=== PATIENT | female | born 1935 | race Caucasian/White ===

== ENCOUNTER → 2017-01-08 | Outpatient (CLI) | payer MEDICARE, OTHER | END | disposition home or self-care (01) | LOC: GMAM 14:35 | PROVIDERS: ATTEND Family Medicine | DX: I10 Essential (primary) hypertension (principal); C85.88 Other specified types of non-Hodgkin lymphoma, lymph nodes of multiple sites ==

== ENCOUNTER → 2017-01-15 | Outpatient (CLI) | payer MEDICARE, OTHER | END | disposition home or self-care (01) | LOC: GMAM 14:25 | PROVIDERS: ATTEND Family Medicine | DX: C85.88 Other specified types of non-Hodgkin lymphoma, lymph nodes of multiple sites (principal); I10 Essential (primary) hypertension ==

== ENCOUNTER → 2017-01-22 | Outpatient (CLI) | payer MEDICARE, OTHER | LOC: GMAM 14:12 | PROVIDERS: ATTEND Family Medicine | DX: D64.9 Anemia, unspecified (principal) ==

== ENCOUNTER → 2017-01-28 | Outpatient (CLI) | payer MEDICARE, OTHER ==
--- NOTE | 2017-01-28 10:18 | CT ---
Study: CT of the Head. Indication: NEAR SYNCOPE Technique: Axial CT images of the head were acquired with and without without intravenous contrast. Comparison: None. Findings: No CT evidence of acute ischemia, acute hemorrhage, mass, mass effect, midline shift, or extra-axial fluid collection. No pathologic enhancement. Ventricles are normal in configuration without hydrocephalus. Patchy hypoattenuation of the periventricular and subcortical white matter noted. This is nonspecific but most consistent with chronic microvascular ischemic change. Global parenchymal volume loss and intracranial atherosclerosis noted as well. Paranasal sinuses are adequately aerated. Mastoid air cells are adequately aerated. Osseous structures and soft tissues are unremarkable. Impression: 1. No CT evidence of acute intracranial abnormality. 2. Senescent changes. Electronically signed by: Ronaldo Contreras MD 01/28/2017 10:17 AM CDT
== END | disposition home or self-care (01) ==
LOC: CT 08:42
PROVIDERS: ATTEND Family Medicine
DX: R55 Syncope and collapse (principal)

== ENCOUNTER → 2017-02-13 | Outpatient (CLI) | payer MEDICARE, OTHER | LOC: GMAM 10:32 | PROVIDERS: ATTEND Family Medicine | DX: E03.9 Hypothyroidism, unspecified (principal) ==

== ENCOUNTER → 2017-04-16 | Outpatient (CLI) | payer MEDICARE, OTHER | END | disposition home or self-care (01) | LOC: GMAM 15:03 | PROVIDERS: ATTEND Family Medicine | DX: E03.9 Hypothyroidism, unspecified (principal) ==

== ENCOUNTER → 2017-04-24 | Outpatient (CLI) | payer MEDICARE, OTHER | LOC: GMAM 16:48 | PROVIDERS: ATTEND Family Medicine | DX: R79.9 Abnormal finding of blood chemistry, unspecified (principal); R59.9 Enlarged lymph nodes, unspecified ==

== ENCOUNTER → 2017-04-25 | Outpatient (CLI) | payer MEDICARE, OTHER | END | disposition home or self-care (01) | LOC: GMAM 09:51 | PROVIDERS: ATTEND Family Medicine | DX: R79.9 Abnormal finding of blood chemistry, unspecified (principal) ==

== ENCOUNTER → 2017-06-18 | Outpatient (CLI) | payer MEDICARE, OTHER | END | disposition home or self-care (01) | LOC: GMAM 14:24 | PROVIDERS: ATTEND Family Medicine | DX: E03.9 Hypothyroidism, unspecified (principal) ==

== ENCOUNTER → 2017-07-09 | Outpatient (CLI) | payer MEDICARE, OTHER | END | disposition home or self-care (01) | LOC: GMAM 14:23 | PROVIDERS: ATTEND Family Medicine | DX: E03.9 Hypothyroidism, unspecified (principal) ==

== ENCOUNTER → 2017-07-12 | Outpatient (CLI) | payer MEDICARE, OTHER ==
--- NOTE | 2017-07-12 13:37 | US ---
Study: Left lower extremity venous Doppler sonogram. Indication: LEG PAIN Technical: Multiplanar grayscale and Doppler sonographic images of the deep veins of the left lower extremity obtained. Findings: There is no sonographic evidence of deep venous thrombosis. The deep veins of the left lower extremity compress normally and have appropriate duplex waveforms. Normal flow augmentation is noted as well. Conclusion: 1. No sonographic evidence of deep venous thrombosis of the left lower extremity. Electronically signed by: Ronaldo Contreras MD 07/12/2017 1:35 PM CDT
== END ==
LOC: US 08:00
PROVIDERS: ATTEND Family Medicine
DX: M79.605 Pain in left leg (principal); M79.662 Pain in left lower leg; M79.672 Pain in left foot; E03.9 Hypothyroidism, unspecified

== ENCOUNTER → 2017-07-22 | Outpatient (CLI) | payer MEDICARE, OTHER | END | disposition home or self-care (01) | LOC: GMAM 14:10 | PROVIDERS: ATTEND Family Medicine | DX: C85.88 Other specified types of non-Hodgkin lymphoma, lymph nodes of multiple sites (principal); I10 Essential (primary) hypertension ==

== ENCOUNTER → 2017-09-03 | Outpatient (CLI) | payer MEDICARE, OTHER | LOC: GMAM 14:39 | PROVIDERS: ATTEND Family Medicine | DX: E03.9 Hypothyroidism, unspecified (principal) ==

== ENCOUNTER → 2017-10-14 | Outpatient (CLI) | payer MEDICARE, OTHER ==
--- NOTE | 2017-10-16 10:25 | MAM ---
EXAM DESCRIPTION: 3D Screening BILATERAL : Digital Mammography. CLINICAL HISTORY: 82 years Female SCREENING . Discomfort from the right axilla to the breast, tender when rubbed. No family history of breast cancer. Mother with ovarian cancer. Postmenopausal. Has taken HRT 5 or more years ago. COMPARISON: 2-D digital screening studies 09/19/2016 and 08/24/2015. Report from prior examination also reviewed. TECHNIQUE: Bilateral CC and MLO projection full-field images, 3-D tomosynthesis digital mammographic technique. Also bilateral synthesized CC/ MLO full-field images. CAD not utilized. FINDINGS: The breast parenchymal density pattern is: Scattered areas of fibroglandular density. No skin thickening or nipple retraction bilateral solitary microcalcifications. Bilateral vascular calcifications. Injection port for VAD abutting the pectoral muscle. Left axillary lymph nodes. No focal, stellate mass or density, focal asymmetry , and no suspicious microcalcifications bilaterally. Stable mammograms compared to prior study, taking into account differences in mammographic technique IMPRESSION: BI-RADS CATEGORY: 2 - BENIGN FINDINGS. FOLLOW UP: Routine digital bilateral screening, one year interval from October 2017. Written communication explaining the IMPRESSION and follow-up, will be mailed to the patient and referring health care provider. According to the [employer], yearly mammograms are recommended starting at age 40 and continuing as long as a woman is in good health. Any breast change noted on a breast self-exam should be reported promptly to the patient's healthcare provider. Breast MRI is recommended for women with an approximately 20-25% or greater lifetime risk of breast cancer, including women with a strong family history of breast or ovarian cancer and women who have been treated for Hodgkin's disease. A negative mammographic report should not delay tissue diagnosis in patients with significant clinical history or physical findings. Extremely dense breast tissue limits the sensitivity of digital mammography. Electronically signed by: Iain Abbasi MD 10/16/2017 10:24 AM VEGETABLE LOADER MACHINE OPERATOR
== END ==
LOC: MAMMO 14:44
PROVIDERS: ATTEND Family Medicine
DX: Z12.31 Encounter for screening mammogram for malignant neoplasm of breast (principal)
CPT/HCPCS: 77063; G0202

== ENCOUNTER 2017-10-24 11:38 | Emergency (ER) | payer MEDICARE, OTHER ==
[2017-10-24 11:56] VITALS: TEMP 99.1
[2017-10-24] MEDS ORDERED: OSELTAMIVIR 75 MG CAP PO ONE (12:41)
[2017-10-24] MEDS ORDERED: IBUPROFEN 200 MG TAB ONE (13:06)
[2017-10-24] MEDS ORDERED: IBUPROFEN 200 MG TAB PO ONE (13:06)
--- NOTE | 2017-10-24 13:17 | ED.PDOC ---
History of Present Illness - General Chief Complaint: Fever Stated Complaint: FEVER, SORE THROAT, ACHING Time Seen by Provider: 10/24/17 11:48 Additional Information: Fever and aches concerning for Influenza. Pt without signs of respiratory distress. She also reports decreased appetite lately. - History of Present Illness Timing/Duration: other - past few days Severity: moderate Improving Factors: nothing Worsening Factors: nothing Associated Symptoms: fever/chills, loss of appetite, weakness Allergies/Adverse Reactions: Allergies Codeine Adverse Reaction (Intermediate, Verified 05/01/16 14:39) Pt. states codeine makes her hallucinate Home Medications: Ambulatory Orders Aluminum Hydroxide-Mag Carb [Gaviscon 95-358 mg/15Ml] 05/01/16 Amiodarone HCl 200 mg PO DAILY 05/01/16 Cetirizine HCl [ZyrTEC] 10 mg PO PRN 05/01/16 Colesevelam HCl [Welchol] 625 mg PO DAILY PRN 05/01/16 Fluticasone Propionate (Nasal) [Flonase Allergy Relief] 50 mcg NA PRN PRN Metoprolol Succinate [Toprol XL] 100 mg PO BIW 05/01/16 Omeprazole [Prilosec] 40 mg PO DAILY 05/01/16 Potassium Chloride [K-Tab] 40 meq PO DAILY 05/01/16 Pravastatin Sodium [Pravachol] 20 mg PO DAILY 05/01/16 Warfarin Sodium 2.5 mg PO DAILY 05/01/16 Oseltamivir Capsule [Tamiflu] 75 mg PO BID 5 Days #10 cap 10/24/17 Review of Systems - Review of Systems Constitutional: States: fever, malaise EENTM: States: no symptoms reported Respiratory: States: cough Cardiology: States: no symptoms reported Gastrointestinal/Abdominal: States: no symptoms reported Genitourinary: States: no symptoms reported Musculoskeletal: States: no symptoms reported Skin: States: no symptoms reported Neurological: States: no symptoms reported Endocrine: States: no symptoms reported Hematologic/Lymphatic: States: no symptoms reported Past Medical History (General) - Patient Medical History Hx Seizures: No Hx Stroke: No Hx Dementia: No Hx Asthma: No Hx of COPD: No Hx Cardiac Disorders: Yes - Cardiac stents, Pacemaker Hx Congestive Heart Failure: No Hx Pacemaker: Yes Hx Hypertension: Yes Hx Thyroid Disease: No Hx Diabetes: Yes Hx Gastroesophageal Reflux: Yes Hx Renal Disease: No Hx Cancer: Yes Hx of HIV: No Hx Hepatitis C: No Hx MRSA: No - Vaccination History Hx Tetanus, Diphtheria Vaccination: No Hx Influenza Vaccination: Yes - Aug 2017 Hx Pneumococcal Vaccination: Yes - 2016 - Social History Hx Tobacco Use: No Hx Chewing Tobacco Use: No Hx Alcohol Use: No Hx Substance Use: No Hx Substance Use Treatment: No Hx Depression: No Hx Physical Abuse: No Hx Emotional Abuse: No Hx Suspected Abuse: No - Female History Patient : No Family Medical History - Family History Mother Family History: Unknown Living Status: Physical Exam - Physical Exam General Appearance: Alert, Comfortable, No apparent distress Eye Exam: bilateral normal Ears, Nose, Throat: hearing grossly normal, normal ENT inspection, normal pharynx Neck: non-tender, full range of motion, supple Respiratory: lungs clear, normal breath sounds, no respiratory distress, no accessory muscle use Cardiovascular/Chest: regular rate, rhythm Gastrointestinal/Abdominal: soft Back Exam: normal inspection Extremity: normal range of motion, non-tender, normal inspection Neurologic: shift engineer II-XII nml as tested, no motor/sensory deficits, alert, normal mood/affect, oriented x 3 Skin Exam: normal color Lymphatic: no adenopathy Progress - Progress Progress: 10/24/17 13:26 Pt nontoxic appearing. Flu positive. Will treat with Tamiflu and Tylenol for now. Encourage fluids and strict return precautions. - Results/Orders Results/Orders: Flu PCR - positive Departure - Departure Clinical Impression: Influenza Time of Disposition: 13:30 Disposition: Discharge to Home or Self Care Condition: Fair Departure Forms: ED Discharge - Pt. Copy, Patient Portal Self Enrollment Instructions: Influenza Referrals: Kike Resendiz MD [Primary Care Provider] - 1-5 Days Prescriptions: Oseltamivir Capsule [Tamiflu] 75 mg PO BID 5 Days #10 cap Home Medications: Ambulatory Orders Aluminum Hydroxide-Mag Carb [Gaviscon 95-358 mg/15Ml] 05/01/16 Amiodarone HCl 200 mg PO DAILY 05/01/16 Cetirizine HCl [ZyrTEC] 10 mg PO PRN 05/01/16 Colesevelam HCl [Welchol] 625 mg PO DAILY PRN 05/01/16 Fluticasone Propionate (Nasal) [Flonase Allergy Relief] 50 mcg NA PRN PRN Metoprolol Succinate [Toprol XL] 100 mg PO BIW 05/01/16 Omeprazole [Prilosec] 40 mg PO DAILY 05/01/16 Potassium Chloride [K-Tab] 40 meq PO DAILY 05/01/16 Pravastatin Sodium [Pravachol] 20 mg PO DAILY 05/01/16 Warfarin Sodium 2.5 mg PO DAILY 05/01/16 Oseltamivir Capsule [Tamiflu] 75 mg PO BID 5 Days #10 cap 10/24/17 Additional Instructions: Stay well hydrated. Take Tylenol every 6 hours as needed for fever/body aches. Return to ER if condition worsens. Follow-up with Dr. Resendiz if unimproved in 5 to 7 days. Keep an eye on INR.
[2017-10-24 13:21] VITALS: BP 160/78; O2SAT 100
== END 2017-10-24 13:10 | disposition home or self-care (01) ==
LOC: ER 11:38
DX: J11.1 Influenza due to unidentified influenza virus with other respiratory manifestations (principal); K21.9 Gastro-esophageal reflux disease without esophagitis; E11.9 Type 2 diabetes mellitus without complications; I10 Essential (primary) hypertension; Z95.0 Presence of cardiac pacemaker; Z95.5 Presence of coronary angioplasty implant and graft; Z85.9 Personal history of malignant neoplasm, unspecified; Z88.5 Allergy status to narcotic agent; Z79.01 Long term (current) use of anticoagulants; Z79.899 Other long term (current) drug therapy

== ENCOUNTER → 2017-11-29 | Outpatient (CLI) | payer MEDICARE ==
--- NOTE | 2017-12-01 14:27 | CT ---
EXAM DESCRIPTION: Sinuses: Computed Tomography. CLINICAL HISTORY: CHRONIC ETHMOIDAL SINUSITIS COMPARISON: None Available. TECHNIQUE: Spiral, axial 2.5 mm scans through the paranasal sinuses and maxillofacial bones without contrast. : Sagittal 2.0 mm reconstructions. Total Exam DLP: 313.64 mGy-cm. This exam was performed according to our departmental CT dose-optimization program which includes automated exposure control, adjustment of the mA and/or kV according to patient size and/or use of iterative reconstruction technique; to reduce radiation dose to as low as reasonably achievable (ALARA). FINDINGS: Air-fluid level in the left maxillary antrum with mucoperiosteal thickening. Right antrum is well aerated. Partial obstruction of the left ostiomeatal unit. Minimal mucoperiosteal thickening in the ethmoid air cells more anterior than posterior. No air-fluid levels. Sphenoid sinuses and frontal sinuses are well aerated. Posterior mid septum deviated to the left more anterior, it is midline. Adore bullosa in the right middle turbinate. Bilateral turbinate mucosal hypertrophy. No significant mucosal thickening or air-fluid levels in the mastoid air cells. Minimal arthrosis in the bilateral TMJs, more right than left. IMPRESSION: 1. Air-fluid level in the left maxillary antrum indicating acute sinusitis. Partial obstruction of the left ostiomeatal unit. 2. Mid and posterior septum slightly deviated to the left of midline. Adore bullosa in the right middle turbinate. 3. Minimal arthrosis in the bilateral TMJs, more right than left. Electronically signed by: Iain Abbasi MD 12/01/2017 2:26 PM OBSTETRIC ANAESTHETIST Workstation: [id number]
== END ==
LOC: CT 09:00
PROVIDERS: ATTEND Otolaryngology Otolaryngology/Facial Plastic Surgery
DX: J32.2 Chronic ethmoidal sinusitis (principal); R09.82 Postnasal drip

== ENCOUNTER → 2018-02-20 | Outpatient (CLI) | payer MEDICARE | LOC: GMAM 14:27 | PROVIDERS: ATTEND Family Medicine | DX: D64.9 Anemia, unspecified (principal); E03.9 Hypothyroidism, unspecified; I10 Essential (primary) hypertension ==

== ENCOUNTER → 2018-04-08 | Outpatient (CLI) | payer MEDICARE | LOC: GMAHI 14:33 | PROVIDERS: ATTEND Nurse Practitioner Family | DX: J44.9 Chronic obstructive pulmonary disease, unspecified (principal); R60.0 Localized edema ==

== ENCOUNTER → 2018-04-22 | Outpatient (CLI) | payer MEDICARE | LOC: GMAM 16:37 | PROVIDERS: ATTEND Family Medicine | DX: E03.9 Hypothyroidism, unspecified (principal) ==

== ENCOUNTER → 2018-08-12 | Outpatient (CLI) | payer MEDICARE | LOC: GMAM 10:45 | PROVIDERS: ATTEND Family Medicine | DX: E03.9 Hypothyroidism, unspecified (principal) ==

== ENCOUNTER → 2018-10-03 | Outpatient (CLI) | payer MEDICARE | LOC: GMAM 10:38 | PROVIDERS: ATTEND Family Medicine | DX: I77.6 Arteritis, unspecified (principal); R51 Headache ==

== ENCOUNTER → 2018-12-11 | Outpatient (CLI) | payer MEDICARE ==
--- NOTE | 2018-12-12 14:43 | MAM ---
EXAM DESCRIPTION: 3D Screening BILATERAL : Digital Mammography. CLINICAL HISTORY: 83 years Female ANNUAL SCREENING . No complaints. No personal or family history of breast cancer. Mother with ovarian cancer. Childbirth. Hysterectomy 20-30 years ago. HRT 5 or more years ago.. Lifetime risk of developing breast cancer (Tyrer-Cuzick model)(%): 1.8. COMPARISON: Digital screening bilateral breast tomosynthesis 10/14/2017. TECHNIQUE: Bilateral CC and MLO projection full-field images, digital tomosynthesis mammographic technique. Bilateral digital 2-D full-field MLO images. CAD not available for tomosynthesis or 2-D images. FINDINGS: The breast parenchymal density pattern is: Almost entirely fatty. No skin thickening or nipple retraction. Bilateral vascular calcifications. Bilateral solitary microcalcifications. Pacemaker power pack partially obscures the left pectoral muscle. No new focal, stellate mass or density, focal asymmetry , and no suspicious microcalcifications bilaterally. Stable mammograms compared to prior study. IMPRESSION: Benign exam. BIRAD CATEGORY: 2 BENIGN FINDINGS. RECOMMENDATIONS: FOLLOW UP: Routine digital bilateral mammographic screening, one year interval from December 2018. Written communication explaining the IMPRESSION and follow-up, will be mailed to the patient and referring health care provider. According to the [employer], yearly mammograms are recommended starting at age 40 and continuing as long as a woman is in good health. Any breast change noted on a breast self-exam should be reported promptly to the patient's healthcare provider. Breast MRI is recommended for women with an approximately 20-25% or greater lifetime risk of breast cancer, including women with a strong family history of breast or ovarian cancer and women who have been treated for Hodgkin's disease. A negative mammographic report should not delay tissue diagnosis in patients with significant clinical history or physical findings. Extremely dense breast tissue limits the sensitivity of digital mammography. Electronically signed by: Iain Abbasi MD 12/12/2018 2:41 PM VIDEO GAME TECHNICIAN
== END ==
LOC: MAMMO 10:30
PROVIDERS: ATTEND Family Medicine
DX: Z12.31 Encounter for screening mammogram for malignant neoplasm of breast (principal)

== ENCOUNTER → 2019-01-14 | Outpatient (CLI) | payer MEDICARE | LOC: GMAM 10:41 | PROVIDERS: ATTEND Family Medicine | DX: E03.9 Hypothyroidism, unspecified (principal) ==

== ENCOUNTER → 2019-01-19 | Outpatient (CLI) | payer MEDICARE ==
--- NOTE | 2019-01-19 10:29 | US ---
EXAM DESCRIPTION: Chest sonogram CLINICAL HISTORY: 83 years Female, CHEST WALL MUSCULOSKELETAL PN COMPARISON: None. FINDINGS: Right lateral chest wall area of pain is evaluated sonographically. Normal subcutaneous fatty tissue with no mass or cyst. Normal chest wall musculature. Surfaces of the ribs are unremarkable. IMPRESSION: Negative. Electronically signed by: Ruben Rich MD 01/19/2019 10:26 AM CDT
== END ==
LOC: US 10:00
PROVIDERS: ATTEND Family Medicine
DX: R07.82 Intercostal pain (principal)

== ENCOUNTER → 2019-01-22 | Outpatient (CLI) | payer MEDICARE ==
--- NOTE | 2019-01-22 16:07 | CT ---
EXAM DESCRIPTION: Chest w/Contrast CLINICAL HISTORY: 83 years, Female, CHEST WALL MUSCULOSKELETAL PAIN COMPARISON: None TECHNIQUE: Thin-section noncontrast axial CT images are obtained according to our protocol. Reconstructed MPR images are created and reviewed as well. Routine adult dose of nonionic iodinated IV contrast was administered. FINDINGS: Lungs: No consolidating pulmonary infiltrate. Minimal patchy groundglass infiltrate in the lateral basal segment right lower lobe and medial and lateral segments of the right middle lobe. Innumerable subtle groundglass nodular densities are seen in both lower lobes. Infectious infiltrate is favored over a malignant process. This can be followed up to see if this resolves after therapy. Otherwise lung biopsy could be performed to evaluate nodular lung disease. Mediastinum: Lymph nodes are normal in size. Hiatal hernia is large bowel and the heart. Cardiac pacer is in place with power source in the anterior left chest wall and leads in the right atrium and right ventricle. Normal vascular contours. Heart size is normal with no pericardial effusion. Heart size is prominent. Enlarged pulmonary arteries are consistent with pulmonary hypertension. Chest wall/axilla: No mass or adenopathy. Symmetrical breast tissue. Lower neck/supraclavicular: No mass or adenopathy. Thyroid gland appears atrophic. Upper abdomen: Adrenal adenoma on the right measures 2.3 x 1.3 cm. Mildly prominent left adrenal gland may be nodular hyperplasia. Otherwise unremarkable upper abdominal viscera. Coronal and sagittal reformatted images confirm the findings. On the coronal images, pulmonary nodules appear more solid. Miliary metastatic disease or granulomatous infection are the most likely considerations. LIP or early lymphomatous changes of the lungs can have a nodular appearance. Subacute stage of hypersensitivity pneumonitis can have mixed nodular and groundglass infiltrative changes. If these nodules persist or increase in size, lung biopsy might be considered for further evaluation. The patient has a history of chest wall pain. No bony or muscular asymmetry to suggest rib fractures or hematoma or edema of the right chest wall as a cause of pain. No soft tissue mass or tumor. IMPRESSION: Innumerable miliary nodules in the lungs. See above differential considerations. This exam was performed according to our departmental dose-optimization program, which includes automated exposure control, adjustment of the mA and/or kV according to patient size and/or use of iterative reconstruction technique. Total DLP equals 366.42 mGycm. Electronically signed by: Ruben Rich MD 01/22/2019 4:04 PM CDT
== END ==
LOC: CT 10:00
PROVIDERS: ATTEND Family Medicine
DX: R07.82 Intercostal pain (principal); R91.8 Other nonspecific abnormal finding of lung field; M75.101 Unspecified rotator cuff tear or rupture of right shoulder, not specified as traumatic; M75.102 Unspecified rotator cuff tear or rupture of left shoulder, not specified as traumatic

== ENCOUNTER → 2019-06-29 | Outpatient (CLI) | payer MEDICARE | LOC: GMAM 14:06 | PROVIDERS: ATTEND Family Medicine | DX: E03.9 Hypothyroidism, unspecified (principal); R53.82 Chronic fatigue, unspecified ==

== ENCOUNTER → 2019-07-27 | Outpatient (CLI) | payer MEDICARE | LOC: GMAM 17:11 | PROVIDERS: ATTEND Family Medicine | DX: E03.9 Hypothyroidism, unspecified (principal) ==

== ENCOUNTER → 2019-11-24 | Outpatient (CLI) | payer MEDICARE | LOC: GMAM 14:27 | PROVIDERS: ATTEND Family Medicine | DX: E03.9 Hypothyroidism, unspecified (principal) ==

== ENCOUNTER → 2019-12-31 | Outpatient (CLI) | payer MEDICARE | LOC: GMAM 17:02 | PROVIDERS: ATTEND Family Medicine | DX: I48.91 Unspecified atrial fibrillation (principal) ==

== ENCOUNTER → 2020-03-25 | Outpatient (CLI) | payer MEDICARE | LOC: GMAM 11:24 | PROVIDERS: ATTEND Family Medicine | DX: D64.9 Anemia, unspecified (principal) ==

== ENCOUNTER → 2020-04-06 | Outpatient (CLI) | payer MEDICARE ==
--- NOTE | 2020-04-06 13:06 | CT ---
Study: CT Chest. Indication: MULTIPLE NODULES OF LUNG Technique: CT imaging of the chest obtained without intravenous administration of contrast. This exam was performed according to our departmental dose-optimization program, which includes automated exposure control, adjustment of the mA and/or kV according to patient size and/or use of iterative reconstruction technique. Comparison: January 22, 2019. Findings: Cardiac pacemaker. Atherosclerosis great vessels, aorta, and coronary arteries. Mild cardiomegaly. Large hiatal hernia. Degenerative changes of the spine noted. Innumerable subtle millimetric groundglass nodular densities are seen in both lower lobes. These appear stable compared to the prior. Infectious infiltrate is favored over a malignant process. Enlarged pulmonary arteries are consistent with pulmonary hypertension. IMPRESSION: Stable innumerable miliary nodules in the lungs. Given stability, these are favored to be infectious/inflammatory in etiology but are ultimately nonspecific. Follow-up CT chest in one year recommended. Additional findings as above. Electronically signed by: Ronaldo Contreras MD 04/06/2020 1:05 PM CDT
--- NOTE | 2020-04-07 18:38 | MAM ---
EXAM DESCRIPTION: 3D Screening BILATERAL : Digital Mammography. CLINICAL HISTORY: 84 years Female ANNUAL SCREENING . No complaints or personal history of breast cancer. Mother with breast cancer unknown age. Menarche age 11. Childbirth age 21. Menopause age 55. HRT 5 or more years ago.. Lifetime risk of developing breast cancer (Tyrer-Cuzick model)(%): 3.3. COMPARISON: Bilateral screening digital breast tomosynthesis October 2019 and October 2017. TECHNIQUE: Bilateral CC and MLO projection full-field images, digital tomosynthesis mammographic technique. Bilateral digital 2-D full-field MLO images. CAD available for 2-D images. FINDINGS: The breast parenchymal density pattern is: Scattered areas of fibroglandular density. No skin thickening or nipple retraction. Vascular calcifications. Coarse calcifications. Solitary microcalcifications. 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 No new focal, stellate mass or density, focal asymmetry , and no suspicious microcalcifications bilaterally. Stable mammograms compared to prior study. IMPRESSION: Benign exam. BIRAD CATEGORY: 2 BENIGN FINDINGS. RECOMMENDATIONS: FOLLOW UP: Routine digital bilateral mammographic screening, one year interval from April 2020. Written communication explaining the IMPRESSION and follow-up, will be mailed to the patient and referring health care provider. According to the [employer], yearly mammograms are recommended starting at age 40 and continuing as long as a woman is in good health. Any breast change noted on a breast self-exam should be reported promptly to the patient's healthcare provider. Breast MRI is recommended for women with an approximately 20-25% or greater lifetime risk of breast cancer, including women with a strong family history of breast or ovarian cancer and women who have been treated for Hodgkin's disease. A negative mammographic report should not delay tissue diagnosis in patients with significant clinical history or physical findings. Extremely dense breast tissue limits the sensitivity of digital mammography. Electronically signed by: Iain Abbasi MD 04/07/2020 6:37 PM CDT
== END ==
LOC: CT 11:20
PROVIDERS: ATTEND Internal Medicine
DX: Z12.31 Encounter for screening mammogram for malignant neoplasm of breast (principal); J98.4 Other disorders of lung; D35.01 Benign neoplasm of right adrenal gland; R07.89 Other chest pain

== ENCOUNTER → 2020-05-17 | Outpatient (CLI) | payer MEDICARE | LOC: GMAM 14:10 | PROVIDERS: ATTEND Family Medicine | DX: D64.9 Anemia, unspecified (principal) ==

== ENCOUNTER → 2020-06-16 | Outpatient (CLI) | payer MEDICARE | LOC: LAB.O 11:56 | PROVIDERS: ATTEND Psychiatry & Neurology Neurology | DX: D64.9 Anemia, unspecified (principal); M45.9 Ankylosing spondylitis of unspecified sites in spine; M25.50 Pain in unspecified joint; R53.83 Other fatigue; I67.9 Cerebrovascular disease, unspecified; M15.0 Primary generalized (osteo)arthritis; E03.9 Hypothyroidism, unspecified; R41.3 Other amnesia; M35.1 Other overlap syndromes; G35 Multiple sclerosis; G70.00 Myasthenia gravis without (acute) exacerbation; G04.89 Other myelitis; G72.9 Myopathy, unspecified; M54.81 Occipital neuralgia; H46.9 Unspecified optic neuritis; R50.9 Fever, unspecified; M79.7 Fibromyalgia; L81.2 Freckles; M10.9 Gout, unspecified; G44.1 Vascular headache, not elsewhere classified; G61.81 Chronic inflammatory demyelinating polyneuritis; M54.12 Radiculopathy, cervical region; M54.16 Radiculopathy, lumbar region; I73.00 Raynaud's syndrome without gangrene; G25.89 Other specified extrapyramidal and movement disorders; M06.9 Rheumatoid arthritis, unspecified; D86.9 Sarcoidosis, unspecified; M32.10 Systemic lupus erythematosus, organ or system involvement unspecified; M31.6 Other giant cell arteritis ==

== ENCOUNTER → 2020-06-23 | Outpatient (CLI) | payer MEDICARE ==
--- NOTE | 2020-06-23 19:06 | CT ---
TECHNIQUE: Spiral CT images were obtained of the cervical spine. Sagittal and coronal reconstructions were also performed. This exam was performed according to our departmental dose-optimization program, which includes automated exposure control, adjustment of the mA and/or kV according to patient size and/or use of iterative reconstruction technique. CLINICAL HISTORY PROVIDED: RADICULOPATHY CERVICAL REGION COMPARISON: None available. FINDINGS: Alignment: Reversal of the normal cervical lordosis apex at C4. Fracture: No acute fracture. Degenerative Changes: Multilevel degenerative changes are present. Prevertebral / Paraspinal Soft Tissues: Unremarkable. C1/2: No significant abnormality. C2/3: Bilateral facet and uncinate process hypertrophy. No significant stenosis. C3/4: Bilateral facet and uncinate process hypertrophy. No significant stenosis. C4/5: Disc space narrowing. Diffuse symmetric disc bulge osteophyte complex. No significant central canal stenosis. Bilateral facet and uncinate process hypertrophy. Mild left neural foraminal narrowing. No right neural foraminal narrowing. C5/6: Disc space narrowing. Diffuse symmetric disc bulge osteophyte complex. Bilateral facet and uncinate process hypertrophy. Severe left and moderate right neural foraminal narrowing. Mild central canal stenosis. C6/7: Posterior disc space narrowing. Diffuse symmetric disc bulge osteophyte complex. Bilateral facet and uncinate process hypertrophy. Moderate to severe bilateral neural foraminal narrowing. C7/T1: No significant abnormality. IMPRESSION: Multilevel cervical spondylosis. No acute fracture or subluxation. Electronically signed by: Nick Norton MD 06/23/2020 7:04 PM CDT
== END | disposition home or self-care (01) ==
LOC: CT 10:00
PROVIDERS: ATTEND Psychiatry & Neurology Neurology
DX: I66.22 Occlusion and stenosis of left posterior cerebral artery (principal); M50.122 Cervical disc disorder at C5-C6 level with radiculopathy; M54.12 Radiculopathy, cervical region

== ENCOUNTER → 2020-06-24 | Outpatient (CLI) | payer MEDICARE | END | disposition home or self-care (01) | LOC: CT 10:00 | PROVIDERS: ATTEND Psychiatry & Neurology Neurology | DX: I66.22 Occlusion and stenosis of left posterior cerebral artery (principal); M50.122 Cervical disc disorder at C5-C6 level with radiculopathy; M54.12 Radiculopathy, cervical region; M47.26 Other spondylosis with radiculopathy, lumbar region ==

== ENCOUNTER → 2020-06-27 | Outpatient (CLI) | payer MEDICARE ==
--- NOTE | 2020-06-28 11:35 | US ---
EXAM DESCRIPTION: Carotid Duplex: ULTRASOUND. CLINICAL HISTORY: 85 years Female OCCLUSION AND STENOSIS OF LEFT POSTERIOR CEREBRAL ART COMPARISON: None. TECHNIQUE: Transcutaneous scanning utilizing fuentes-scale and Doppler modes to evaluate the bilateral carotid systems and vertebral arteries. Percentage of diameter of stenosis or no stenosis recorded will be based upon NASCET criteria. FINDINGS: Peak systolic/end diastolic velocities (CM-Sec) CCA Right 98/16 Left 88/14. ICA Right proximal 48/13, distal 69/16. Left proximal 50/10, Distal 68/19. Vertebral Right 57/17 Left 48/7. ECA (PS Only) Right 60 left 53. ICA/CCA peak systolic velocity ratio: Right 0.7 Left 0.8 ICA/CCA end diastolic velocity ratio: Right 1.0 Left 1.4 Vertebral arteries: antegrade flow. Comments: Bilateral atherosclerotic calcifications in the common carotid bulbs and proximal ICAs. Spectral broadening and color turbulent flow mid and distal ICA. Spectral broadening left ICA. Left mid CCA bulb: Area stenosis and diameter stenosis less than 20%. Right proximal ICA: Area stenosis and diameter stenosis less than 30%. IMPRESSION: 1. Doppler evaluation of the bilateral carotid systems and vertebral arteries shows no hemodynamically significant stenoses (less than 70%). 2. No significant amount of plaque in the carotid arteries bilaterally. Bilateral vertebral arteries showed antegrade-cephalad flow. Electronically signed by: Iain Abbasi MD 06/28/2020 11:33 AM CDT
== END | disposition home or self-care (01) ==
LOC: US 13:30
PROVIDERS: ATTEND Psychiatry & Neurology Neurology
DX: I66.22 Occlusion and stenosis of left posterior cerebral artery (principal)

== ENCOUNTER → 2020-07-05 | Outpatient (CLI) | payer MEDICARE ==
--- NOTE | 2020-07-05 19:08 | CT ---
EXAM DESCRIPTION: CT ABDOMEN AND PELVIS WITH CONTRAST CLINICAL HISTORY: GENERALIZED ABDOMINAL TENDERNESS COMPARISON: CT lumbar spine June 24, 2020, CT chest April 06, 2020 TECHNIQUE: CT of the abdomen and pelvis are performed during IV bolus administration of 100 mL of Isovue 300. No oral contrast. FINDINGS: In the lower chest, the lung bases are clear. Heart size is large with cardiac pacer in place. Hiatal hernia of moderate size in the lower thorax CT abdomen Mildly prominent intrahepatic bile ducts. Gallbladder surgically absent. Multiple renal lesions consistent with cysts. Bilateral renal cortical scarring. Otherwise the liver, spleen, pancreas, gallbladder, stomach and kidneys are unremarkable in appearance. Nodular adrenal glands consistent with nodular hyperplasia. Adenoma of larger size in the medial limb of the right adrenal gland 1.8 cm. No inflammation around the pancreas. No renal stones or hydronephrosis. No bowel dilatation to suggest obstruction. No free air or free fluid. Delayed images show normal contrast accumulation in the urinary collecting systems. CT pelvis Appendix appears normal. No inflammation around the cecum or terminal ileum or sigmoid colon. Bladder and distal ureters are negative for stones. Bladder is near empty of urine. Normal enhancement of pelvic vessels. No inguinal or lower pelvic adenopathy. Uterus is small. No ovarian enlargement. Bone window images are negative for fracture or lytic lesion. Advanced degenerative disc disease in lower lumbar spine with high-grade spinal stenosis at L4-5 Coronal and sagittal reformatted images confirm the findings. 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 Sagittal images show severe degenerative disc disease at multiple levels with vacuum disc phenomenon. Compressed L1 vertebral body appears acute or subacute with retropulsion narrowing the spinal canal approximately 50%. This compression fracture is new compared to previous CT of the lumbar spine June 24, 2020 and there is 60% loss of height. Fracture lines are seen posterior and superiorly as well as transversely parallel to the compressed superior endplate no extension of the fracture of the posterior elements but involvement of the posterior third suggest the potential for instability. IMPRESSION: Acute or subacute L1 compression fracture as described. Otherwise no acute upper abdominal process. No acute pelvic process. This exam was performed according to our departmental dose-optimization program, which includes automated exposure control, adjustment of the mA and/or kV according to patient size and/or use of iterative reconstruction technique. Total DLP equals 1548.67 mGycm. Electronically signed by: Ruben Rich MD 07/05/2020 7:06 PM CDT
== END ==
LOC: CT 09:29
PROVIDERS: ATTEND Family Medicine
DX: R10.817 Generalized abdominal tenderness (principal); M48.56XA Collapsed vertebra, not elsewhere classified, lumbar region, initial encounter for fracture

== ENCOUNTER → 2020-08-18 | Outpatient (CLI) | payer MEDICARE ==
--- NOTE | 2020-08-19 12:59 | RAD ---
EXAM DESCRIPTION: Lumbar Spine 3 Views CLINICAL HISTORY: 85 years Female, LOW BACK PAIN COMPARISON: June 24, 2020 Findings: 3 view(s)/radiograph(s) L1 augmentation. Interval T12 superior endplate compression deformity with approximately 75% height loss. Osteopenia. Atherosclerotic disease. No other interval fracture identified. No acute subluxation. Degenerative stairstep retrolisthesis. IMPRESSION: Interval T12 superior endplate compression fracture with approximately 75% height loss. Electronically signed by: Nick Norton MD 08/19/2020 12:57 PM CDT
== END ==
LOC: RAD 14:31
PROVIDERS: ATTEND Neurological Surgery
DX: M48.54XA Collapsed vertebra, not elsewhere classified, thoracic region, initial encounter for fracture (principal)

== ENCOUNTER → 2020-09-15 | Outpatient (CLI) | payer MEDICARE | LOC: GMAM 16:41 | PROVIDERS: ATTEND Family Medicine | DX: Z01.811 Encounter for preprocedural respiratory examination (principal) ==

== ENCOUNTER → 2020-09-16 | Outpatient (CLI) | payer MEDICARE | LOC: GMAM 13:21 | PROVIDERS: ATTEND Family Medicine | DX: E83.42 Hypomagnesemia (principal); E87.6 Hypokalemia ==

== ENCOUNTER → 2020-09-20 | Outpatient (CLI) | payer MEDICARE ==
--- NOTE | 2020-09-21 09:39 | CT ---
EXAM: Thoracic Spine INDICATION: WEDGE COMPRESSION FX . T12 compression fracture identified on lumbar spine radiographs from 08/18/2020. COMPARISON: Lumbar spine radiographs 08/18/2020, CT abdomen pelvis with contrast 07/05/2020 TECHNIQUE: CT of the thoracic spine was performed without IV contrast. Multiple axial images and multiplanar reconstructions were generated. This exam was performed according to our departmental dose-optimization program, which includes automated exposure control, adjustment of the mA and/or kV according to patient size and/or use of iterative reconstruction technique. FINDINGS: Subacute compression fracture of the T12 vertebral body with approximately 60% height loss anteriorly. The appearance is similar overall to the lumbar spine radiographs of 08/18/2020, allowing for differences in technique and limitations on the prior radiographs. There is mild retropulsion of the superior endplate into the ventral spinal canal by approximately 3 mm, resulting in mild relative central spinal canal stenosis at this level. There is also focal kyphosis, which may also be partially due to a remote compression fracture at L1. No significant neural foraminal stenosis at this level. Air within the fracture cleft and in the disc space has increased since the prior CT abdomen pelvis of 07/05/2020. Subacute nondisplaced fracture of the head of the left 12th rib. Possible subacute nondisplaced fracture of the head of the left 11th rib. Remote deformity of the right posterior 10th rib. Remote compression fracture at L1 with changes of vertebral augmentation. See dedicated lumbar spine CT report for lumbar spine findings. Osteopenia. Height is well maintained in the remaining vertebral bodies of the thoracic spine. No other fractures are identified. No destructive osseous lesion is identified. Mild multilevel degenerative changes in the thoracic spine without significant spinal canal or neural foraminal stenosis at any level. Degenerative changes are noted in the shoulders. Multiple incidental groundglass pulmonary nodules are identified in the lungs, including a 5 mm nodule in the right middle lobe (axial series 2 image 90), a 4 mm and a 2 mm nodule in the right middle lobe (image 75), a 4 mm nodule in the anterior right upper lobe (image 69), a 4 mm nodule in the lingula (image 69), and a 5 mm nodule in the superior segment of the right lower lobe (image 42). Multiple additional 2 to 3 mm subpleural groundglass pulmonary nodules are noted bilaterally. No pleural effusion. No pneumothorax. Borderline cardiomegaly. No pericardial effusion. Pacemaker leads are noted. The main pulmonary artery is mildly enlarged at 3.7 cm. The caliber of the ascending aorta is within normal limits. Moderate atherosclerosis in the thoracic aorta. A 7 mm prevascular lymph node is noted. Additional scattered small mediastinal lymph nodes are present. None of these appear pathologically enlarged. Unremarkable appearance of the visualized thyroid gland. Moderate hiatal hernia. Diffuse mild thickening of both adrenal glands. A 1.9 cm right adrenal gland nodule is low density, compatible with adenoma. 2.5 cm simple cyst in the upper pole of the right kidney. The gallbladder is surgically absent. IMPRESSION: 1. Subacute T12 compression fracture demonstrates approximately 60% height loss with 3 mm retropulsion of the posterior superior endplate. This results in only mild relative narrowing of the central spinal canal at this level. Focal kyphosis at the thoracolumbar junction related to this T12 compression fracture as well as a remote L1 compression fracture. 2. Subacute nondisplaced fracture of the head of the left 12th rib and probably the head of the left 11th rib. 3. Multiple incidental groundglass pulmonary nodules are identified in the lungs bilaterally, the largest of which is a 5 mm nodule in the right middle lobe. Recommend a non-contrast Chest CT at 3-6 months. If stable, consider follow-up non-contrast Chest CTs at 2 and 4 years. (Radiology. 2017 May; 284(1):228-243; Chest. 2012; 143(5)(Suppl):[id number]). 4. Mild enlargement of the main pulmonary artery, a finding which can be seen in pulmonary hypertension. Correlate clinically. 5. Multiple additional incidental findings in the chest and upper abdomen as described above. Electronically signed by: Poornima Auguste MD 09/21/2020 9:37 AM [facility]
--- NOTE | 2020-09-21 10:05 | CT ---
EXAM: Lumbar Spine INDICATION: FX OF LUMBAR VERTEBRA . Recent T12 compression fracture on lumbar spine radiographs from 08/18/2020. History of prior L1 vertebral augmentation. COMPARISON: Lumbar spine radiographs 08/18/2020, CT abdomen pelvis with contrast 07/05/2020 , CT lumbar spine without contrast 06/24/2020 TECHNIQUE: CT of the lumbar spine was performed without IV contrast. Multiple axial images and multiplanar reconstructions were generated. This exam was performed according to our departmental dose-optimization program, which includes automated exposure control, adjustment of the mA and/or kV according to patient size and/or use of iterative reconstruction technique. FINDINGS: For the purposes of this examination, the last fully formed disc space is designated as L5-S1, reference axial image 74. Exaggerated lumbar lordosis with retrolisthesis of L2 on L3 and L3 on L4, similar to the prior CT lumbar spine examination of 06/24/2020. Interval changes of vertebral augmentation and L1 compression fracture identified on the CT abdomen pelvis of 07/05/2020. Height loss is approximately 30-40% following augmentation. There is mild retropulsion of the posterior superior endplate by approximately 4-5 mm, grossly stable from the prior examination of 07/05/2020. This results in moderate central spinal canal stenosis at this level, grossly stable from the prior examination. Focal kyphosis at the thoracolumbar junction is likely related to this compression fracture at L1 as well as a subacute compression fracture at T12. Subacute compression fracture at T12. See dedicated thoracic spine CT report for findings in the thoracic spine. Remote fracture at the tip of the right L1 transverse process. Osteopenia. The remaining vertebral body heights in the lumbar spine are well-maintained without compression fracture. Multilevel degenerative changes in the lumbar spine have not significantly changed from the CT lumbar spine examination of 06/24/2020. Of note, degenerative disc disease is most severe at L2-L3 with moderate spinal canal stenosis. Facet arthropathy and degenerative retrolisthesis at this level contributes to moderate left greater than right neural foraminal stenosis. Severe spinal canal stenosis is again noted at L4-L5. See the prior CT lumbar spine report for level by level analysis. Right renal cysts are noted. The gallbladder surgically absent. Bilateral adrenal gland thickening with a right adrenal gland adenoma. Severe atherosclerosis. IMPRESSION: 1. Remote compression fracture at L1 status post vertebral augmentation. 4-5 mm retropulsion of the posterior superior endplate results in moderate spinal canal stenosis at this level, grossly stable from the prior CT abdomen pelvis examination of 07/05/2020. 2. Remote nondisplaced fracture at the tip of the right L1 transverse process. 3. Subacute T12 compression fracture. See dedicated same day thoracic spine CT report for thoracic spine findings. 4. Multilevel degenerative changes in the lumbar spine have not significantly changed since the lumbar spine CT of 06/24/2020. Electronically signed by: Poornima Auguste MD 09/21/2020 10:03 AM [facility]
== END ==
LOC: LAB.O 10:05
PROVIDERS: ATTEND Family Medicine
DX: S32.000A Wedge compression fracture of unspecified lumbar vertebra, initial encounter for closed fracture (principal); S22.000S Wedge compression fracture of unspecified thoracic vertebra, sequela; S22.31XA Fracture of one rib, right side, initial encounter for closed fracture; M51.86 Other intervertebral disc disorders, lumbar region; M47.896 Other spondylosis, lumbar region; R91.8 Other nonspecific abnormal finding of lung field; M51.26 Other intervertebral disc displacement, lumbar region; E87.6 Hypokalemia; I28.8 Other diseases of pulmonary vessels

== ENCOUNTER 2020-09-22 20:22 | Emergency (ER) | payer MEDICARE ==
[2020-09-22] MEDS ORDERED: KETOROLAC TROMETHAMINE INJ 30 MG/ML VIAL IV ONE (20:31)
--- NOTE | 2020-09-22 21:37 | RAD ---
1 VIEW PELVIS 2 VIEWS LEFT HIP 2 VIEWS LEFT FEMUR HISTORY: Hip pain post fall. COMPARISON: None. FINDINGS: No acute fracture or dislocation is seen. The joint spaces are preserved. The soft tissues are unremarkable. Generalized osteopenia is present. IMPRESSION: No acute fracture is visualized. Electronically signed by: Glynn Landers MD 09/22/2020 9:36 PM [facility]
--- NOTE | 2020-09-22 21:38 | RAD ---
1 VIEW PELVIS 2 VIEWS LEFT HIP 2 VIEWS LEFT FEMUR HISTORY: Hip pain post fall. COMPARISON: None. FINDINGS: No acute fracture or dislocation is seen. The joint spaces are preserved. The soft tissues are unremarkable. Generalized osteopenia is present. IMPRESSION: No acute fracture is visualized. Electronically signed by: Glynn Landers MD 09/22/2020 9:36 PM [facility]
--- NOTE | 2020-09-22 21:38 | RAD ---
1 VIEW PELVIS 2 VIEWS LEFT HIP 2 VIEWS LEFT FEMUR HISTORY: Hip pain post fall. COMPARISON: None. FINDINGS: No acute fracture or dislocation is seen. The joint spaces are preserved. The soft tissues are unremarkable. Generalized osteopenia is present. IMPRESSION: No acute fracture is visualized. Electronically signed by: Glynn Landers MD 09/22/2020 9:36 PM [facility]
[2020-09-22] MEDS ORDERED: CYCLOBENZAPRINE HCL 5 MG TAB PO ONE (22:50)
--- NOTE | 2020-09-22 22:52 | ED.PDOC ---
History of Present Illness - General Chief Complaint: Trauma Stated Complaint: fall, Rt femoral pain Time Seen by Provider: 09/22/20 20:30 Source: patient Exam Limitations: no limitations - History of Present Illness Initial Comments: The patient is a 85-year-old female presents emergency room secondary to having slipped and fallen on a wet floor at her home this evening. She has pain in her right hip. There is no shortening. She is actually able to move it but reports it is too painful to bear weight. Earlier in the day she had a kyphoplasty done. She is not having any pain at the kyphoplasty site. No neurological changes. No other injury. There is no bruising. No palpable deformity. No syncope. Timing/Duration: 1/2 hour Severity: severe Improving Factors: immobilization Worsening Factors: movement Allergies/Adverse Reactions: Allergies Codeine Adverse Reaction (Intermediate, Verified 05/01/16 14:39) Pt. states codeine makes her hallucinate Home Medications: Ambulatory Orders Aluminum Hydroxide-Mag Carb [Gaviscon 95-358 mg/15Ml] 05/01/16 Amiodarone HCl 200 mg PO DAILY 05/01/16 Cetirizine HCl [ZyrTEC] 10 mg PO PRN 05/01/16 Colesevelam HCl [Welchol] 625 mg PO DAILY PRN 05/01/16 Fluticasone Propionate (Nasal) [Flonase Allergy Relief] 50 mcg NA PRN PRN 05/01/16 Metoprolol Succinate [Toprol XL] 100 mg PO BIW 05/01/16 Omeprazole [Prilosec] 40 mg PO DAILY 05/01/16 Potassium Chloride [K-Tab] 40 meq PO DAILY 05/01/16 Pravastatin Sodium [Pravachol] 20 mg PO DAILY 05/01/16 Warfarin Sodium 2.5 mg PO DAILY 05/01/16 Oseltamivir Capsule [Tamiflu] 75 mg PO BID 5 Days #10 cap 10/24/17 Review of Systems - Review of Systems Constitutional: States: no symptoms reported EENTM: States: no symptoms reported Respiratory: States: no symptoms reported Cardiology: States: no symptoms reported Gastrointestinal/Abdominal: States: no symptoms reported Genitourinary: States: no symptoms reported Musculoskeletal: States: see HPI Skin: States: no symptoms reported Neurological: States: no symptoms reported Endocrine: States: no symptoms reported All other Systems: No Change from Baseline Past Medical History (General) - Patient Medical History Hx Seizures: No Hx Stroke: No Hx Dementia: No Hx Asthma: No Hx of COPD: No Hx Cardiac Disorders: Yes - Cardiac stents, Pacemaker Hx Congestive Heart Failure: No Hx Pacemaker: Yes Hx Hypertension: Yes Hx Thyroid Disease: No Hx Diabetes: Yes Hx Gastroesophageal Reflux: Yes Hx Renal Disease: No Hx Cancer: Yes Hx of HIV: No Hx Hepatitis C: No Hx MRSA: No - Vaccination History Hx Tetanus, Diphtheria Vaccination: Yes Hx Influenza Vaccination: Yes Hx Pneumococcal Vaccination: Yes Immunizations Up to Date: Yes - Social History Hx Tobacco Use: No Hx Chewing Tobacco Use: No Hx Alcohol Use: No Hx Substance Use: No Hx Substance Use Treatment: No Hx Depression: No Hx Physical Abuse: No Hx Emotional Abuse: No Hx Suspected Abuse: No - Female History Patient : No Family Medical History - Family History Mother Family History: Unknown Living Status: Physical Exam - Physical Exam General Appearance: Alert Eye Exam: bilateral normal Ears, Nose, Throat: hearing grossly normal, normal pharynx, other - No evidence of head injury Neck: non-tender, full range of motion, supple Respiratory: lungs clear, normal breath sounds, no respiratory distress, no accessory muscle use Cardiovascular/Chest: normal peripheral pulses, no edema, other - Regular rate Peripheral Pulses: radial,right: 2+, radial,left: 2+, dorsalis pedis,right: 2+, dorsalis pedis,left: 2+ Gastrointestinal/Abdominal: non tender, soft Rectal Exam: deferred Back Exam: no vertebral tenderness, other - Procedure sites appear appropriate Extremity: no pedal edema, no calf tenderness, normal capillary refill, other - Pain to the left hip with passive and active range of motion. No crepitus. Neurologic: car sweeper II-XII nml as tested, alert, normal mood/affect, oriented x 3 Skin Exam: normal color Comments: Vital Signs - 24 hr 09/22/20 09/22/20 09/22/20 20:25 20:29 21:22 Temperature 97.2 F L Pulse Rate [ 77 77 72 left] Respiratory 16 20 16 Rate Blood Pressure 187/119 187/119 159/70 [Left Arm] O2 Sat by Pulse 96 95 92 L Oximetry 09/22/20 22:11 Temperature Pulse Rate [ 70 left] Respiratory 14 Rate Blood Pressure 150/61 [Left Arm] O2 Sat by Pulse 91 L Oximetry Progress - Progress Progress: 09/22/20 22:53 The patient is an 85-year-old female presented to the emergency room secondary to having slipped and fallen in her home. She appears to sustained a left hip strain. The patient reports that it is too painful for her to bear weight fully at this time. As long and has no one to help her get around safely, the patient will be placed in the hospital at least overnight, to be reevaluated in the morning for functionality. The patient will be transferred to the [facility], for appropriate care secondary to restricted availability at this hospital due to coronavirus spike. Transferring for continued care. Acceptance is appreciated. The patient will need to restart her blood thinners tomorrow. Vital signs have remained stable. pelon izaguirre [phone] - Results/Orders Results/Orders: X-rays of the left hip, pelvis and left femur show no evidence of fracture or dislocation. Departure - Departure Clinical Impression: Strain of left hip Qualifiers: Encounter type: initial encounter Qualified Code(s): S76.012A - Strain of muscle, fascia and tendon of left hip, initial encounter Fall in home Qualifiers: Encounter type: initial encounter Qualified Code(s): W19.XXXA - Unspecified fall, initial encounter; Y92.009 - Unspecified place in unspecified non- institutional (private) residence as the place of occurrence of the external cause Condition: Fair Departure Forms: ED Discharge - Pt. Copy, Patient Portal Self Enrollment Referrals: Kike Izaguirre MD [Primary Care Provider] - 1-2 Weeks Home Medications: Ambulatory Orders Aluminum Hydroxide-Mag Carb [Gaviscon 95-358 mg/15Ml] 05/01/16 Amiodarone HCl 200 mg PO DAILY 05/01/16 Cetirizine HCl [ZyrTEC] 10 mg PO PRN 05/01/16 Colesevelam HCl [Welchol] 625 mg PO DAILY PRN 05/01/16 Fluticasone Propionate (Nasal) [Flonase Allergy Relief] 50 mcg NA PRN PRN 05/01/16 Metoprolol Succinate [Toprol XL] 100 mg PO BIW 05/01/16 Omeprazole [Prilosec] 40 mg PO DAILY 05/01/16 Potassium Chloride [K-Tab] 40 meq PO DAILY 05/01/16 Pravastatin Sodium [Pravachol] 20 mg PO DAILY 05/01/16 Warfarin Sodium 2.5 mg PO DAILY 05/01/16 Oseltamivir Capsule [Tamiflu] 75 mg PO BID 5 Days #10 cap 10/24/17 Transfer to Outside Facility - Transfer Information Decision to Transfer Date: 09/22/20 Decision to Transfer Time: 22:55 Accepting Provider:: dr medrano Accepting Facility: [facility]
[2020-09-22 23:50] VITALS: BP 147/74; TEMP 97.8; O2SAT 98
== END 2020-09-23 00:02 | disposition home or self-care (01) ==
LOC: ER 20:22
DX: S76.012A Strain of muscle, fascia and tendon of left hip, initial encounter (principal); I51.9 Heart disease, unspecified; I10 Essential (primary) hypertension; E11.9 Type 2 diabetes mellitus without complications; K21.9 Gastro-esophageal reflux disease without esophagitis; W01.0XXA Fall on same level from slipping, tripping and stumbling without subsequent striking against object, initial encounter; Y92.009 Unspecified place in unspecified non-institutional (private) residence as the place of occurrence of the external cause; Z85.9 Personal history of malignant neoplasm, unspecified; Z95.0 Presence of cardiac pacemaker; Z95.5 Presence of coronary angioplasty implant and graft; Z79.01 Long term (current) use of anticoagulants; Z79.899 Other long term (current) drug therapy; Z88.5 Allergy status to narcotic agent; Z20.828 Contact with and (suspected) exposure to other viral communicable diseases
CPT/HCPCS: 72170; 73502; 73551; 87635; J1885

== ENCOUNTER → 2020-12-15 | Outpatient (CLI) | payer MEDICARE | LOC: YCHH 08:29 | PROVIDERS: ATTEND Family Medicine | DX: E78.5 Hyperlipidemia, unspecified (principal); E03.9 Hypothyroidism, unspecified; D64.9 Anemia, unspecified; I10 Essential (primary) hypertension ==